=== PATIENT | male | born 1990 | race Caucasian/White ===

== ENCOUNTER 2018-06-04 22:12 | Emergency (ER) | payer OTHER ==
[~2018-06-04] VITALS: Ht 165.1 cm; Wt 68.3 kg
--- NOTE | 2018-06-04 22:50 | NUR ---
MD AT BEDSIDE FOR EVALUATION
[2018-06-04] MEDS ORDERED: HYDROMORPHONE INJ 0.5 MG/0.5 ML SYRINGE ONE ×2 (22:58→23:43)
[2018-06-04] MEDS ORDERED: HYDROMORPHONE INJ 2 MG/ML DISP.SYRIN IV ONE (23:00)
[2018-06-04] MEDS ORDERED: IV NS 0.9% 1,000 ML BAG IV ONE (23:00)
--- NOTE | 2018-06-04 23:00 | NUR ---
PT BIBRA COMPLAINING OF LEFT LOWER QUADRANT PAIN X2 HOURS. PT DESCRIBES PAIN SHARP AND INTERMITTENT. PT DENIES N/V/D, CHEST PAIN, SOB, DYSURIA. PT AAOX4. APPEARS UNCOMFORTABLE. PT CRYING OUT LOUD IN PAIN AND IS RESTLESS. VITAL SIGNS STABLE. PT PLACED ON CONTINUOUS MONITOR, WILL CONTINUE TO MONITOR
--- NOTE | 2018-06-04 23:10 | NUR ---
IV INITIATED RIGHT AC 20G. LABS DRAWN FROM SITE. [employer] AT BEDSIDE FOR COLLECTION. IV INTACT AND PATENT
[2018-06-04 23:15] LABS: BASOPHILS % (AUTO) 0.4 % (0.0-2.0); EOSINOPHILS % (AUTO) 0.3 % (0.0-6.0); HEMATOCRIT 44 % (39-51); HEMOGLOBIN 14.8 g/dL (13.5-17.5); LYMPHOCYTES # (AUTO) 1.2 /CMM (0.8-4.8); LYMPHOCYTES % (AUTO) 10.9 % (20.0-44.0); MEAN CORPUSCULAR HGB CONC 34 g/dl (31.0-36.0); MEAN CORPUSCULAR VOLUME 89 fL (80-96); MONOCYTES # (AUTO) 0.5 /CMM (0.1-1.30); MONOCYTES % (AUTO) 4.1 % (2.0-12.0); NEUTROPHILS # (AUTO) 9.6 /CMM (1.8-8.9); NEUTROPHILS % (AUTO) 84.3 % (43.0-81.0); PLATELET COUNT (AUTO) 189 /CMM (150-450); RED BLOOD CELL COUNT(AUTO) 4.92 MIL/uL (4.5-6.0); WHITE BLOOD COUNT (AUTO) 11.4 K/uL (4.3-11.0)
[2018-06-04 23:19] LABS: APPEARANCE,URINE CLEAR (CLEAR); BILIRUBIN,URINE NEGATIVE (NEGATIVE); BLOOD, URINE 3+ Ery/uL (NEGATIVE); COLOR,URINE YELLOW (YELLOW); KETONES,URINE NEGATIVE (NEGATIVE); LEUKOCYTE ESTERASE ,URINE NEGATIVE (NEGATIVE); NITRITE, URINE NEGATIVE (NEGATIVE); PH,URINE 5.5 (5.0-8.0); PROTEIN,URINE NEGATIVE (NEGATIVE); UGLUCOSE NEGATIVE (NEGATIVE); UROBILINOGEN,URINE 0.2 EU/dL (0.2)
--- NOTE | 2018-06-04 23:25 | NUR ---
Deanna akers in [facility] - 06/04/18 at 2339 by BLANCA PT UNABLE TO PROVIDE URINE SAMPLE AT THIS TIME, MD TIM
[2018-06-04 23:35] LABS: CALCIUM, SERUM 8.9 mg/dL (8.5-10.1); CREATININE 1.2 mg/dL (0.6-1.3); POTASSIUM 3.7 mmol/L (3.5-5.1)
[2018-06-04 23:37] LABS: BACTERIA,URINE None seen /HPF (None Seen); MUCUS,URINE Few /LPF (None Seen); RBC,URINE 51-80 /HPF (0-2); SQUAMOUS EPITHELIAL CELL,UR Few /HPF (None Seen); WBC,URINE 0-2 /HPF (0-3)
--- NOTE | 2018-06-04 23:39 | NUR ---
PT BROUGHT BY RADIOLOGY FOR CT
[2018-06-04 23:42] LABS: ALBUMIN 4.2 g/dL (3.4-5.0); BILIRUBIN,DIRECT 0.1 mg/dL (0.0-0.2); BILIRUBIN,TOTAL 0.3 mg/dL (0.2-1.0); TOTAL PROTEIN, SERUM 7.7 g/dL (6.4-8.2)
[2018-06-04] MEDS ORDERED: KETOROLAC TROMETHAMINE INJ 30 MG/ML VIAL ONE (23:43)
--- NOTE | 2018-06-04 23:50 | NUR ---
PT RETURNED FROM CT
[2018-06-05] MEDS ORDERED: HYDROMORPHONE INJ 0.5 MG/0.5 ML SYRINGE IV ONE
[2018-06-05] MEDS ORDERED: KETOROLAC TROMETHAMINE INJ 30 MG/ML VIAL IV ONE
[2018-06-05] MEDS ORDERED: TAMSULOSIN 0.4 MG CAP.SR.24H ONE (00:58)
[2018-06-05] MEDS ORDERED: TAMSULOSIN 0.4 MG CAP.SR.24H PO ONE (01:00)
--- NOTE | 2018-06-05 01:07 | NUR ---
Patient discharged to home in stable condition. Written and verbal after care instructions given. Patient verbalizes understanding of instruction. IV removed. Catheter intact and site benign. Pressure and 4x4 applied to site. No bleeding noted. Pt ambulatory with a steady gait. Pt instructed not to drive. Left with friend
[2018-06-05 01:09] VITALS: BP 122/73
== END 2018-06-05 01:10 | disposition home or self-care (01) ==
LOC: ER 22:17
DX: N20.0 Calculus of kidney (principal)
CPT/HCPCS: 36415; 80048-TC; 80076-TC; 81000-TC; 83690-TC; 85025-TC; 85730-TC; 87086-TC; J1170; J1885; J7030

== ENCOUNTER 2023-12-26 16:42 | Emergency (ER) | payer MEDICAID, OTHER ==
[~2023-12-26] VITALS: Ht 165.1 cm; Wt 93.0 kg
[2023-12-26] MEDS ORDERED: KETOROLAC TROMETHAMINE 15 MG/ML VIAL ONE (17:57)
[2023-12-26] MEDS: IV NS 0.9% 1,000 ML BAG IV ONE (18:00)
[2023-12-26] MEDS: KETOROLAC TROMETHAMINE 15 MG/ML VIAL IV ONE (18:00)
[2023-12-26 18:06] LABS: BASOPHILS # (AUTO) 0.1 K/uL (0.0-0.2); BASOPHILS % (AUTO) 0.9 % (0.0-2.0); EOSINOPHILS # (AUTO) 0.1 K/uL (0.0-0.7); EOSINOPHILS % (AUTO) 1.4 % (0.0-6.0); HEMATOCRIT 46 % (39-51); HEMOGLOBIN 15.2 g/dL (13.5-17.5); LYMPHOCYTES # (AUTO) 2.2 K/uL (0.8-4.8); LYMPHOCYTES % (AUTO) 39.5 % (20.0-44.0); MEAN CORPUSCULAR HEMOGLOBIN 30 PG (26.0-33.0); MEAN CORPUSCULAR HGB CONC 33 g/dl (31.0-36.0); MEAN CORPUSCULAR VOLUME 90 fL (80-96); MONOCYTES # (AUTO) 0.4 K/uL (0.1-1.30); MONOCYTES % (AUTO) 6.8 % (2.0-12.0); NEUTROPHILS # (AUTO) 2.9 K/uL (1.8-8.9); NEUTROPHILS % (AUTO) 51.4 % (43.0-81.0); PLATELET COUNT (AUTO) 194 K/uL (150-450); RED BLOOD CELL COUNT(AUTO) 5.07 MIL/uL (4.5-6.0); RED CELL DISTRIBUTION WIDTH 13.3 % (11.5-15.0); WHITE BLOOD COUNT (AUTO) 5.6 K/uL (4.3-11.0)
[2023-12-26 18:37] LABS: ALBUMIN 3.8 g/dL (3.4-5.0); BILIRUBIN,DIRECT 0.1 mg/dL (0.0-0.2); BILIRUBIN,TOTAL 0.5 mg/dL (0.2-1.0); CALCIUM, SERUM 9.9 mg/dL (8.5-10.1); CREATININE 1.1 mg/dL (0.6-1.3); POTASSIUM 3.9 mmol/L (3.5-5.1); TOTAL PROTEIN, SERUM 7.8 g/dL (6.4-8.2)
[2023-12-26 19:09] LABS: APPEARANCE,URINE CLEAR (CLEAR); BILIRUBIN,URINE NEGATIVE (NEGATIVE); BLOOD, URINE 3+ Ery/uL (NEGATIVE); KETONES,URINE NEGATIVE (NEGATIVE); LEUKOCYTE ESTERASE ,URINE NEGATIVE (NEGATIVE); NITRITE, URINE NEGATIVE (NEGATIVE); PROTEIN,URINE NEGATIVE (NEGATIVE); UGLUCOSE NEGATIVE (NEGATIVE); UROBILINOGEN,URINE 0.2 EU/dL (0.2)
[2023-12-26] MEDS ORDERED: TAMS-12 PO (19:12)
[2023-12-26] MEDS ORDERED: ONDA4TAB5 PO (19:12)
[2023-12-26 19:21] LABS: COLOR,URINE LIGHT YELLOW (YELLOW)
[2023-12-26 19:22] LABS: ADD URINE CULTURE NO; BACTERIA,URINE 1+ /HPF (None Seen); MUCUS,URINE Few /LPF (None Seen); RBC,URINE 51-80 /HPF (0-2); SQUAMOUS EPITHELIAL CELL,UR None Seen /HPF (None Seen); WBC,URINE 0-2 /HPF (0-3)
[2023-12-26] MEDS: TAMSULOSIN 0.4 MG CAP.SR.24H PO ONE (19:23)
[2023-12-26 20:21] VITALS: BP 133/65; TEMP 98.9; O2SAT 98
== END 2023-12-26 20:22 | disposition home or self-care (01) ==
LOC: ER 16:47
DX: N20.0 Calculus of kidney (principal)
CPT/HCPCS: 99285; 74176; 96374; 96361; 85025; 80048; 87086; 83690; 80076; 81001; 36415; J7030; J1885